=== PATIENT | male | born 1990 | race Caucasian/White ===

== ENCOUNTER 2016-11-06 16:01 | Emergency (ER) | payer BC ==
[~2016-11-06] VITALS: Ht 185.4 cm; Wt 114.6 kg
[~2016-11-06 16:01] MED LIST: NOHOMEMEDS; PEN-VEE K,VEET500 MG PO; PERCOCET 5/31 TABLET PO; VICODIN ES 71 TABLET PO
[2016-11-06 16:51] LABS: MCH 31.6 PG (29.0-34.0); MCHC 35.9 G/DL (30.0-36.0); MEAN PLAT.VOLUME 9.7 uM^3 (9.0-12.4); PLATELET COUNT 166 K/uL (156-360); RBC DIS.WIDTH-CV 12.4 % (11.8-14.6); WHITE BLOOD COUNT 5.7 K/uL (4.1-10.2)
[2016-11-06 17:02] LABS: CHLORIDE 103 mEq/L (99-109); POTASSIUM 4.1 mEq/L (3.7-5.4); SODIUM 136 mEq/L (136-147)
[2016-11-06 17:04] LABS: GLUCOSE 85 mg/dL (70-99)
[2016-11-06 17:06] LABS: ANION GAP 10 MEQ/L (2-14)
[2016-11-06 17:08] LABS: GFR ESTIMATE (CALCULATED) > 59 mL/min/
[2016-11-06 17:09] LABS: UREA NITROGEN (BUN) 10 mg/dL (9-23)
[2016-11-06] MEDS ORDERED: ZITHROMAX Z-PA250 MG PO (19:52)
[2016-11-06] MEDS ORDERED: MEDROL DOSEPAK4 MG PO (19:52)
[2016-11-06 20:08] LABS: BILIRUBIN SMALL; BLOOD NEGATIVE; COLOR DK YELLOW ((YELLOW)); GLUCOSE (STRIP) NEGATIVE; KETONES TRACE; LEUKOCYTES NEGATIVE; NITRITE NEGATIVE; PH, URINE 6.5 (5-8); PROTEIN (STRIP) TRACE; SPECIFIC GRAVITY 1.039 (1.000-1.030)
[2016-11-06 20:09] LABS: ADD MIUA? NO; UCUL ADDED? NO
[2016-11-06 20:26] VITALS: BP 133/70
== END 2016-11-06 20:29 | disposition home or self-care (01) ==
LOC: EME 16:01
PROVIDERS: Physician Assistant
DX: J06.9 Acute upper respiratory infection, unspecified (principal); B34.9 Viral infection, unspecified; Z87.440 Personal history of urinary (tract) infections; F17.200 Nicotine dependence, unspecified, uncomplicated
CPT/HCPCS: 71020; 80048; 81003; 85027; 99281; 99283